=== PATIENT | female | born 1955 | race Caucasian/White ===

== ENCOUNTER 2022-01-22 20:58 | Emergency (ER) | payer MEDICARE ==
[2022-01-22 21:24] LABS: BILIRUBIN,URINE NEGATIVE (NEGATIVE); GLUCOSE, URINE (UA) 500 mg/dL (NEGATIVE); KETONES,URINE (UA) NEGATIVE (NEGATIVE); LEUKOCYTE ESTERASE, URINE SMALL (NEGATIVE); NITRITE,URINE NEGATIVE (NEGATIVE); OCCULT BLOOD,URINE TRACE-INTA (NEGATIVE); PROTEIN,URINE TRACE mg/dL (NEGATIVE); UROBILINOGEN,URINE 2 E.U./dL (NORMAL)
[2022-01-22 21:30] LABS: CLARITY,URINE CLEAR (CLEAR)
[2022-01-22 21:33] LABS: BACTERIA,URINE Many /HPF (None Seen); SQUAMOUS EPITHELIAL CELL,UR FEW Squamous (<= Few); WBC,URINE >25 /HPF (0-5)
[2022-01-22] MEDS ORDERED: SULFAMETH/TRIMETH DS 800/160 MG TABLET PO STA (22:58)
--- NOTE | 2022-01-22 23:00 | ED Physician Documentation ---
History of Present Illness - Stated complaint Stated Complaint: FEMALE - Chief complaint Chief Complaint: Abd Pain - History obtained from History obtained from: Patient - Additonal information Additional information: The patient comes to the emergency department chief complaint of urinary frequency and dysuria over the past 3 days. She states she had a fever on the first day subjectively but she has not had 1 since. No nausea or vomiting. No unusual back pain. The patient states she has a history of diabetes and has had to have PICC lines placed for osteomyelitis but has no history of urosepsis. She told her doctor about her symptoms and her doctor told her to come here and get IV antibiotics. No other complaints at this time. Review of Systems Ten Systems: 10 systems reviewed and negative Constitutional: reports: Reviewed and negative Eyes: reports: Reviewed and negative Ears: reports: Reviewed and negative Nose: reports: Reviewed and negative Throat: reports: Reviewed and negative Cardiac: reports: Reviewed and negative Respiratory: reports: Reviewed and negative GI: reports: Reviewed and negative : reports: Dysuria, Frequency Skin: reports: Reviewed and negative Musculoskeletal: reports: Reviewed and negative Neurologic: reports: Reviewed and negative Psychiatric: reports: Reviewed and negative Endocrine: reports: Reviewed and negative Immunocompromised: reports: Reviewed and negative PD PAST MEDICAL HISTORY - Past Medical History Past Medical History: Yes Cardiovascular: Hypertension, High cholesterol Endocrine/Autoimmune: Type 2 diabetes, HyPOthyroidism GI: GERD Psych: Depression Musculoskeletal: Chronic back pain - Past Surgical History Past Surgical History: Yes General: Cholecystectomy Ortho: Amputation, Other /INTAKE NURSE: Hysterectomy HEENT: Tonsil/Adenoidectomy - Present Medications Home Medications: Ambulatory Orders Medication Instructions Recorded Confirmed Atenolol [Tenormin] 50 mg PO DAILY 01/22/22 01/22/22 Atorvastatin [Lipitor] 10 mg PO DAILY 01/22/22 01/22/22 Buspirone HCl 15 mg PO DAILY 01/22/22 01/22/22 Celecoxib [Celebrex] 200 mg PO DAILY 01/22/22 01/22/22 Estradiol [Estrace] 1 mg PO DAILY 01/22/22 01/22/22 Fenofibrate Nanocrystallized 145 mg PO DAILY 01/22/22 01/22/22 [Tricor] Gabapentin [Neurontin] 300 mg PO DAILY 01/22/22 01/22/22 Levothyroxine [Synthroid] 125 mcg PO DAILY 01/22/22 01/22/22 Pilocarpine HCl 5 mg PO DAILY 01/22/22 01/22/22 Sulfamethox/Trimeth 800/160 1 each PO BID #14 tablet 01/22/22 [Bactrim Ds 800/160] buprenorphine HCL [Buprenorphine 8 tab SL DAILY 01/22/22 01/22/22 HCl] diltiaZEM CD [Cardizem Cd] 120 mg PO DAILY 01/22/22 01/22/22 hydroCHLOROthiazide [Hydrodiuril] 12.5 mg PO DAILY 01/22/22 01/22/22 - Allergies Allergies/Adverse Reactions: Allergies Allergy/AdvReac Type Severity Reaction Status Date / Time No Known Drug Allergies Allergy Verified 01/22/22 21:03 - Social History Does the pt smoke?: No Smoking Status: Never smoker Does the pt drink ETOH?: No Does the pt have substance abuse?: No - Immunizations Immunizations are current?: Yes PD ED PE NORMAL - Vitals Vital signs reviewed: Yes - General General: Alert and oriented X 3, No acute distress, Well developed/nourished - HEENT HEENT: Atraumatic, PERRL, EOMI, Moist mucous membranes - Neck Neck: Supple, no meningeal sign - Cardiac Cardiac: RRR, No murmur, Strong equal pulses - Respiratory Respiratory: No respiratory distress, Clear bilaterally - Abdomen Abdomen: Soft, Non tender - Derm Derm: Warm and dry - Extremities Extremities: No deformity - Neuro Neuro: Alert and oriented X 3 - Psych Psych: Normal mood, Normal affect Results - Vitals Vitals: Vital Signs - 24 hr 01/22/22 21:03 Temperature 36.5 C Heart Rate 77 Respiratory 16 Rate Blood Pressure 170/72 H O2 Saturation 99 Oxygen O2 Source Room air - Labs Labs: Laboratory Tests 01/22/22 21:08 Urine Color YELLOW Urine Clarity CLEAR Urine pH 6.0 Ur Specific [place] 1.010 Urine Protein TRACE Urine Glucose (UA) 500 H Urine Ketones NEGATIVE Urine Occult Blood TRACE-INTA Urine Nitrite NEGATIVE Urine Bilirubin NEGATIVE Urine Urobilinogen 2 H Ur Leukocyte Esterase SMALL H Urine RBC 6-10 H Urine WBC >25 H Ur Squamous Epith Cells FEW Squamous Urine Bacteria Many H Ur Microscopic Review INDICATED Urine Culture Comments INDICATED PD MEDICAL DECISION MAKING - ED course Complexity details: reviewed results, re-evaluated patient, considered differential, d/w patient, d/w family ED course: Patient's urinalysis was positive for infection. I discussed with the patient that at this point in time, her vital signs do not give any indication of sepsis and her urinalysis is only moderately positive at this point in time. As such, and given that the patient has no drug allergies, there is no indication at this time to go immediately to IV antibiotics. She has been given first dose of oral antibiotics here and a prescription for the same. We have discussed the usual indications for return. Departure - Departure Disposition: 01 Home, Self Care Clinical Impression: Cystitis Condition: Stable Instructions: ED UTI Cystitis Female Prescriptions: Sulfamethox/Trimeth 800/160 [Bactrim Ds 800/160] 1 each PO BID #14 tablet Comments: There is no indication for IV antibiotics at this point in time. You have no evidence of sepsis and your urinalysis is only mild to moderately positive. You do not have a fever here. You have been started on your first dose of antibiotics here in the emergency department. Is very important that you drink plenty of fluids and that you take your antibiotics every day, as directed. A prescription has been electronically transmitted to [facility] in [place]. It may take 2 or 3 days to really start noticing that your symptoms are turning around; however, if you continue to worsen over the next couple of days despite antibiotics, please return to the emergency department for further evaluation.
[2022-01-22 23:04] VITALS: BP 160/71
== END 2022-01-22 23:11 | disposition home or self-care (01) ==
LOC: ED 20:58
DX: N30.90 Cystitis, unspecified without hematuria (principal); I10 Essential (primary) hypertension; E11.9 Type 2 diabetes mellitus without complications
CPT/HCPCS: 81001; 87086; 87181; 99283; A9270; 81003